=== PATIENT | female | born 1970 | race Caucasian/White ===

== ENCOUNTER 2024-11-23 19:00 | Emergency (ER) | payer MEDICAID ==
[~2024-11-23] VITALS: Ht 165.1 cm; Wt 73.0 kg
[2024-11-23 19:02] VITALS: TEMP 36.5; O2SAT 99
[2024-11-23] MEDS ORDERED: MORPHINE SULFATE 4 MG/ML INJ (FOR IV/IM USE) IV ONE (19:30)
[2024-11-23 19:55] VITALS: TEMP 97.7
[2024-11-23] MEDS: ACETAMINOPHEN 500MG TABLET PO ONE (19:55)
[2024-11-23] MEDS: NITROGLYCERIN 0.4MG TABLET SL SL PRN (20:00)
[2024-11-23] MEDS: LORAZEPAM 2MG/ML UD SYRINGE IV SCH (20:23)
[2024-11-23 20:43] LABS: BASOPHILS % 0.7 % (0.0-2.0); EOSINOPHILS % 1.4 % (0.0-5.0); HEMATOCRIT. 40.2 % (36.0-48.0); HEMOGLOBIN. 13.5 g/dL (12.0-16.0); LYMPHOCYTES % 33.8 % (20.0-50.0); MEAN PLATELET VOLUME 9.9 fl (7.4-10.4); MONOCYTES % 9.6 % (2.0-8.0); NEUTROPHILS % 54.5 % (40.0-76.0); PLATELET 188 x1000/uL (130-400); RED BLOOD CELL COUNT 4.57 mill/uL (4.2-5.4); RED CELL DISTRIBUTION WIDTH 13.4 % (11.6-14.6)
[2024-11-23 20:57] LABS: INR 1.0
[2024-11-23 20:59] LABS: *AMPHETAMINES SCREEN URINE NEGATIVE (NEGATIVE); *BARBITURATES SCREEN URINE NEGATIVE (NEGATIVE); *BENZODIAZEPINES SCREEN URINE NEGATIVE (NEGATIVE); CREATININE 0.9 mg/dL (0.6-1.0)
[2024-11-23 21:00] LABS: *COCAINE SCREEN URINE NEGATIVE (NEGATIVE); CANNABINOID URINE SCREEN NEGATIVE (NEGATIVE); ECSTASY MDMA SCREEN URINE NEGATIVE (NEGATIVE); ETHANOL BLOOD < 10 mg/dL (<10); METHADONE URINE SCREEN NEGATIVE (NEGATIVE); OPIATES URINE SCREEN NEGATIVE (NEGATIVE); PHENCYCLIDINE URINE SCREEN NEGATIVE (NEGATIVE); TROPONIN I HIGH SENSITIVITY 5 ng/L (3.0-34); UREA NITROGEN BLOOD 11 mg/dL (9-23)
[2024-11-23 21:01] LABS: ASPARTATE AMINOTRANSFERASE 29 IU/L (<34)
[2024-11-23 21:02] LABS: BILIRUBIN DIRECT 0.1 mg/dL (<=3.0); BILIRUBIN TOTAL 0.5 mg/dL (0.1-1.0); PROTEIN TOTAL 7.4 g/dL (6.0-8.3)
[2024-11-23 21:53] LABS: TROPONIN I HIGH SENSITIVITY < 4 ng/L (3.0-34)
[2024-11-23 22:50] VITALS: BP 135/84; PULSE 69; RESP 13; O2SAT 97
[2024-12-20] MEDS ORDERED: IBUP-2030 MT (09:25)
[2024-12-20] MEDS ORDERED: KEPP500 MT (09:25)
== END 2024-11-23 23:04 | disposition home or self-care (01) ==
LOC: ER 19:00 → CANBEDREQ 23:04
DX: R07.89 Other chest pain (principal); I10 Essential (primary) hypertension; R06.02 Shortness of breath; G40.909 Epilepsy, unspecified, not intractable, without status epilepticus; Z88.5 Allergy status to narcotic agent; Z88.8 Allergy status to other drugs, medicaments and biological substances
CPT/HCPCS: 80076; 80305; 80048; 80320; 83880; 83690; 85025; 85379; 85610; 84484; 36415; 71045; 93005; 96374; 99285; J2060; G0480

== ENCOUNTER 2024-11-24 06:43 | Emergency (ER) | payer MEDICAID ==
[~2024-11-24] VITALS: Ht 165.1 cm; Wt 64.0 kg
[2024-11-24 06:48] VITALS: O2SAT 98
[2024-11-24 06:56] VITALS: BP 159/101; PULSE 68; RESP 18; TEMP 36.9; O2SAT 99
[2024-11-24] MEDS: ACETAMINOPHEN 325MG TABLET PO ONE (08:05)
== END 2024-11-24 08:56 | disposition home or self-care (01) ==
LOC: ER 06:43
DX: M79.605 Pain in left leg (principal); M25.562 Pain in left knee; M25.572 Pain in left ankle and joints of left foot; I10 Essential (primary) hypertension; Z88.5 Allergy status to narcotic agent; Z88.8 Allergy status to other drugs, medicaments and biological substances; W01.0XXA Fall on same level from slipping, tripping and stumbling without subsequent striking against object, initial encounter; Y93.89 Activity, other specified; Y92.89 Other specified places as the place of occurrence of the external cause; Y99.8 Other external cause status
CPT/HCPCS: 29505; 73562; 73590; 73610; 99284

== ENCOUNTER 2025-01-30 02:38 | Emergency (ER) | payer MEDICAID ==
[~2025-01-30] VITALS: Ht 165.1 cm; Wt 73.0 kg
[~2025-01-30 02:38] MED LIST: IBUP-2030 MT; KEPP500 MT
[2025-01-30 02:43] VITALS: TEMP 36.8; O2SAT 98
[2025-01-30] MEDS: ONDANSETRON HCL 4MG/2ML INJ IV ONE (03:29)
[2025-01-30] MEDS: ASPIRIN 81MG TABLET PO ONE (03:29)
[2025-01-30 03:37] LABS: BASOPHILS % 0.6 % (0.0-2.0); EOSINOPHILS % 1.7 % (0.0-5.0); HEMATOCRIT. 39.7 % (36.0-48.0); HEMOGLOBIN. 13.9 g/dL (12.0-16.0); LYMPHOCYTES % 26.4 % (20.0-50.0); MEAN PLATELET VOLUME 9.2 fl (7.4-10.4); MONOCYTES % 7.1 % (2.0-8.0); NEUTROPHILS % 64.2 % (40.0-76.0); PLATELET 257 x1000/uL (130-400); RED BLOOD CELL COUNT 4.66 mill/uL (4.2-5.4); RED CELL DISTRIBUTION WIDTH 13.3 % (11.6-14.6)
[2025-01-30] MEDS: KETOROLAC 15MG/ML VIAL IV NR (03:42)
[2025-01-30 03:54] LABS: CREATININE 0.9 mg/dL (0.6-1.0); UREA NITROGEN BLOOD 13 mg/dL (9-23)
[2025-01-30 03:56] LABS: ASPARTATE AMINOTRANSFERASE 23 IU/L (<34); BILIRUBIN TOTAL 0.7 mg/dL (0.1-1.0); PROTEIN TOTAL 7.7 g/dL (6.0-8.3)
[2025-01-30 04:57] VITALS: BP 158/94; PULSE 77; RESP 17; O2SAT 99
[2025-01-30] MEDS ORDERED: ASPI-1497 MT (05:35)
[2025-01-30] MEDS ORDERED: NIFE-33 MT (05:35)
[2025-01-30] MEDS ORDERED: PROP10TA10 MT (05:35)
[2025-01-30] MEDS ORDERED: ONDA-239 PO (05:35)
[2025-01-30] MEDS ORDERED: NALO4SPR BOTHNSTRLS (05:36)
== END 2025-01-30 06:00 | disposition home or self-care (01) ==
LOC: ER 02:58
DX: T40.601A Poisoning by unspecified narcotics, accidental (unintentional), initial encounter (principal); I10 Essential (primary) hypertension; Z79.82 Long term (current) use of aspirin; Z88.5 Allergy status to narcotic agent; Z79.899 Other long term (current) drug therapy; Y92.89 Other specified places as the place of occurrence of the external cause
CPT/HCPCS: 80053; 80307; 80329; 80320; 85025; 36415; 96374; 96375; 99285; Z7610 ×3; J1885; J2405; G0480